=== PATIENT | female | born 1955 | race Caucasian/White ===

== ENCOUNTER → 2016-07-27 | Outpatient (CLI) | payer OTHER, BC ==
[~2016-07-27] MED LIST: FLOV110A INH; OXYC1SOL5 PO; RANI150 PO; SYNT137T PO; Z.0.WALKERFRONT
--- NOTE | 2016-07-27 10:28 | RADRPT ---
EXAM DATE/TIME: 07/27/2016 08:45 [facility] COMPARISON: CT ABDOMEN & PELVIS W CONTRAST, December 25, 2015, 10:45. INDICATIONS : Perforated colon in 2015, possible colostomy reversal to be done in September 2016, no abdominal diego n FLUORO TIME: 2.2 minutes IMAGE COUNT: 19 CONTRAST: 1. Polibar ACB Barium Sulfate (96% w/w) MEDICAL HISTORY : History of perforated colon. SURGICAL HISTORY : Colon resection. Colostomy. ENCOUNTER: Initial ACUITY: 1 day PAIN SCORE: 0/10 LOCATION: Bilateral abdomen FINDINGS: A balloon tip catheter was first inserted into the rectum, and barium was instilled under fluoroscopi c control. Barium flowed approximately 10-15 cm into the distal colon to the site of surgical resection. There i s no evidence of leakage or focal abnormality on this solid column exam. A balloon tip catheter was then placed into the colostomy and barium was instilled under fluoroscopic control. This demonstrated filling to the cecum with scattered diverticuli. There were no definite f illing defects. There is no evidence of leakage or obstruction. The ileocecal valve is competent. The re is no visualized appendix. CONCLUSION: Status post diverting colostomy with no evidence of leakage or obstruction. Mild dive rticulosis. aDnny Garcia MD on July 27, 2016 at 10:22 Board Certified Radiologist. This report was verified electronically.
== END ==
LOC: HRAD 07:50
PROVIDERS: ATTEND Surgery
DX: K63.1 Perforation of intestine (nontraumatic) (principal); K63.3 Ulcer of intestine; Z93.3 Colostomy status
CPT/HCPCS: 74270